=== PATIENT | male | born 1985 | race American Indian/Alaskan Native ===

== ENCOUNTER 2017-02-21 12:37 | Outpatient (CLI) | payer BC ==
--- NOTE | 2017-02-21 13:50 | XRay Report ---
Right ankle 3 views: History: Sprain. Findings: No articular abnormality. No fracture dislocation. Impression: No evidence of acute fracture
== END 2017-02-21 12:38 | disposition home or self-care (01) ==
LOC: XRAY 12:37
PROVIDERS: ATTEND Internal Medicine
DX: S93.401A Sprain of unspecified ligament of right ankle, initial encounter (principal); X58.XXXA Exposure to other specified factors, initial encounter; Y93.89 Activity, other specified; Y92.89 Other specified places as the place of occurrence of the external cause; Y99.8 Other external cause status